=== PATIENT | male | born 1945 | race Caucasian/White ===

== ENCOUNTER 2020-05-06 18:22 | Emergency (ER) | payer MEDICARE, MEDICAID, SELFPAY ==
--- NOTE | ~2020-05-06 | XR_ITS ---
EXAMINATION: XR chest 2V DATE: 05/06/2020 20:06 INDICATION: Shortness of breath, known chest wall mass TECHNIQUE: PA and lateral views of the chest are obtained. COMPARISON: 05/17/2016 FINDINGS: A mild diffuse interstitial pattern is present. The heart size is normal. There are small p leural effusions. No pneumothorax is identified. Median sternotomy wires and mediastinal surgical cli ps are seen, likely from prior coronary artery bypass grafting. A dual-lead cardiac pacemaker of the right chest wall ends with leads in expected locations. There is moderate thoracic spondylosis with a chronic compression fracture of the lower thoracic spine. There is a calcified chest wall mass of th e anterior left mid thorax, reportedly chronic. IMPRESSION: 1. Mild pulmonary edema. 2. Small pleural effusions. Reviewed, dictated and finalized at location A.
[2020-05-06 18:33] VITALS: BP 189/88; PULSE 84; RESP 18; TEMP 36.7; O2SAT 91
--- NOTE | 2020-05-06 18:38 | ECG_ITS ---
Measurements Intervals [place] Rate: 78 P: 81 [place]: 174 QRS: -11 QRSD: 97 T: 44 QT: 337 QTc: 386 Interpretive Statements SINUS RHYTHM INCOMPLETE RIGHT BUNDLE BRANCH BLOCK LOW QRS VOLTAGE IN PRECORDIAL LEADS BORDERLINE ST-T WAVE ABNORMALITY- INF/LAT LEADS BASELINE ARTIFACT- I, II, III BORDERLINE ECG Electronically Signed On 05-07-2020 6:47:02 CDT by Justice Barragan D.O.
[2020-05-06 18:59] LABS: Basophils Absolute Auto 0.1 K/mm3 (0.0-0.1); Eosinophils Absolute Auto 0.7 K/mm3 (0-0.3); Eosinophils Percent Auto 11.1 % (0-4.4); Hematocrit 35.9 % (42.0-52.0); Hemoglobin 11.8 g/dL (14.0-18.0); Immature Granulocyte Absolute 0.05 K/mm3 (0.00-0.031); Immature Granulocyte Percent A 0.8 % (0-0.5); Lymphocytes Percent Auto 11.6 % (18.3-44.2); Mean Corpuscular HGB Conc 32.9 g/dl (32-36); Mean Corpuscular Hemoglobin 30.3 pg (26-34); Mean Corpuscular Volume 92.1 fl (80-100); Mean Platelet Volume 9.5 fl (7.4-10.4); Monocytes Absolute Auto 0.6 K/mm3 (0.1-0.6); Monocytes Percent Auto 9.5 % (2.6-8.5); Platelet Count Result 124 k/mm3 (150-375); Red Cell Distribution Width 15.6 % (11.5-14.5)
[2020-05-06 19:10] LABS: Blood Urea Nitrogen 24 mg/dL (9-20); Calcium 9.6 mg/dL (8.4-10.2); Carbon Dioxide 34 mmol/L (22-30); Chloride 99 mmol/L (98-107); Estimated CRCL calculation 70 ml/min; Estimated Glomerular Filt Rate > 60; Glucose 104 mg/dL (75-110); Potassium 3.6 mmol/L (3.4-5.0); Sodium 139 mmol/L (137-145)
[2020-05-06 20:07] VITALS: BP 202/92; PULSE 77; PULSE 79; RESP 16; O2SAT 100
[2020-05-06 21:13] LABS: NT Pro B Type Natriuretic Pept 1300 PG/ML (5-100)
[2020-05-06 21:35] VITALS: BP 175/80; PULSE 74; RESP 16; O2SAT 100
[2020-05-06] MEDS: FUROSEMIDE INJ 40 MG/4 ML VIAL IV PUSH (21:35)
[2020-05-06 22:20] VITALS: BP 179/87; PULSE 70; RESP 21; O2SAT 100
[2020-05-06 23:15] VITALS: BP 179/77; PULSE 70; RESP 22; O2SAT 99
--- NOTE | 2020-05-06 23:20 | ED.SOB ---
HPI - SOB/Dyspnea General Chief Complaint: Shortness of Breath/Dyspnea Stated Complaint: short of breath/ho recent pneumonia Time Seen by Provider: 05/06/20 19:55 History of Present Illness HPI Narrative: Patient is a 75-year-old male who presents the ER with shortness of breath. Patient has history of COPD. He was hospitalized 3 weeks ago at [facility] with pneumonia. Since then he has had some persistent shortness of breath. He spoke with his primary care doctor and he has been taking oral Levaquin for last week. He was originally on 500 mg daily and now he is on 750 mg daily. He has not been on any steroids for COPD because he is diabetic and makes his blood sugar go up. He reports he continues to have rattling in his chest. He wears 3 L of oxygen chronically at rest and 4 L at night when sleeping and 4 L with exertion. He has not had to increase his oxygen level. Related Data Home Medications Medication Instructions Recorded Confirmed Lacto no.[id number].bifid-B.animalis 1 cap PO DAILY 05/06/20 [Advanced Probiotic-10] Lacto.acidophilus-Bif.animalis 1 cap PO DAILY 05/06/20 [Daily Probiotic] alprazolam 0.25 mg PO TID 05/06/20 aspirin [Aspir-81] 81 mg PO DAILY 05/06/20 carvedilol 12.5 mg PO BID 05/06/20 clopidogrel 75 mg PO DAILY 05/06/20 cyclosporine [Restasis] 1 drp OPHTHALMIC (EYE) Q12H 05/06/20 enalapril maleate 20 mg PO HS 05/06/20 evolocumab [Repatha SureClick] 140 mg SUBCUT [id number] 05/06/20 finasteride 5 mg PO HS 05/06/20 fluticasone furoate-vilanterol 1 inh INHALATION DAILY 05/06/20 [Breo Ellipta] furosemide 40 mg PO DAILY 05/06/20 gabapentin 300 mg PO DIRECTED 05/06/20 glipizide 5 mg PO BID 05/06/20 hydrocodone-acetaminophen 1 tablet PO DIRECTED PRN 05/06/20 isosorbide mononitrate 120 mg PO DAILY 05/06/20 metformin 1,000 mg PO BID 05/06/20 pantoprazole [Protonix] 40 mg PO BID 05/06/20 tamsulosin 0.4 mg PO HS 05/06/20 umeclidinium [Incruse Ellipta] 1 inh INHALATION HS 05/06/20 vitamins A,C,U-hdjo-vjjjsp 1 tablet PO BID 05/06/20 [PreserVision AREDS] Allergies Allergy/AdvReac Type Severity Reaction Status Date / Time morphine Allergy Hypotension Verified 05/06/20 20:05 Review of Systems Review of Systems: All systems reviewed & are unremarkable except as noted in HPI and below Constitutional: Constitutional: Denies chills, Denies fever(s) and Denies weakness ENT: Denies nasal congestion and Denies sore throat Cardiovascular: Cardiovascular: Denies chest pain and Denies radiating jaw, neck or arm pain Respiratory: Respiratory: Reports cough, Reports dyspnea and Reports wheezing Gastrointestinal: Gastrointestinal: Denies abdominal pain, Denies nausea and Denies vomiting Neurologic: Denies focal weakness and Denies numbness PMFSH Past Medical History Medical History (Updated 05/06/20 @ 23:31 by Seb Kaur MD) Anxiety BPH (benign prostatic hyperplasia) COPD (chronic obstructive pulmonary disease) Diabetes type 2, controlled Hypertension Pneumonia Surgical History Surgical History (Updated 05/06/20 @ 23:29 by Seb Kaur MD) Surgical history unknown Exam Narrative: Exam Narrative: GENERAL: Well-appearing, well-nourished, and in no acute distress. HEAD: Normocephalic, atraumatic. ENT: Mucous membranes moist. CHEST: Coarse expiratory rales. No respiratory distress. HEART: Regular rate and rhythm. Normal peripheral pulses. ABDOMEN: Soft, nontender, nondistended. EXTREMITIES: Normal range of motion. No deformity. NEURO: Alert and oriented x3. PSYCH: Normal mood and affect. Course Course Emergency Course: No evidence of pneumonia. Slight volume overload. Given additional Lasix here. Needs follow-up with PCP. Vital Signs Vital signs: Vital Signs Temperature 98.1 F 05/06/20 18:33 Pulse Rate 84 05/06/20 18:33 Respiratory Rate 18 05/06/20 18:33 Blood Pressure 189/88 H 05/06/20 18:33 Pulse Oximetry 91 05/06/20 18:33
[2020-05-06 23:40] VITALS: BP 172/75; PULSE 68; RESP 20; O2SAT 99
== END 2020-05-06 23:40 | disposition home or self-care (01) ==
PROVIDERS: Emergency Medicine; Emergency Provider Emergency Medicine; PCP Internal Medicine
DX: I11.0 Hypertensive heart disease with heart failure (principal); I50.9 Heart failure, unspecified; J44.9 Chronic obstructive pulmonary disease, unspecified; N40.0 Benign prostatic hyperplasia without lower urinary tract symptoms; E11.9 Type 2 diabetes mellitus without complications; Z79.82 Long term (current) use of aspirin; F41.9 Anxiety disorder, unspecified; I45.10 Unspecified right bundle-branch block; R94.31 Abnormal electrocardiogram [ECG] [EKG]; Z79.84 Long term (current) use of oral hypoglycemic drugs
CPT/HCPCS: 36415; 71046; 80048; 83605; 83880; 85025; 93005; 96374; 99284; J1940

== ENCOUNTER 2021-01-20 23:14 | Inpatient (IN) | payer MEDICARE, MEDICAID, SELFPAY ==
--- NOTE | ~2021-01-20 | XR_ITS ---
EXAMINATION: XR chest 1V portable DATE: 01/22/2021 05:39 INDICATION: Pneumonia. TECHNIQUE: A single frontal view of the chest was obtained. COMPARISON: Chest single view 01/20/2021, chest CT 01/21/2021 FINDINGS: The patient is rotated to his left. There are small pleural effusions. There are airspace o pacities in all lung zones bilaterally with a basilar predominance. No pneumothorax. Cardiomegaly is noted. There is a right chest wall pacer with leads in the right atrium and right ventricle. Median s ternotomy wires and mediastinal surgical clips are seen, likely from prior coronary artery bypass gra fting. IMPRESSION: 1. Stable diffuse lung disease, consistent with pneumonia. 2. Small pleural effusions. 3. Cardiomegaly. Reviewed, dictated and finalized at location A. CLAIM CLERK
--- NOTE | ~2021-01-20 | CT_ITS ---
EXAMINATION: CTA chest PE protocol DATE: 01/21/2021 12:32 INDICATION: Acute on chronic respiratory failure, shortness of breath and chest pain TECHNIQUE: Computed tomography angiography (CTA) of the chest was performed with 100 mL Omnipaque-350 intravenous contrast timed to evaluate the pulmonary arteries. Coronal maximum intensity projection 3D-reconstructions were created by the technologist. The dose-length product (DLP) was 675.78 mGy-cm. Automated exposure control and iterative reconstruction technique were employed. COMPARISON: None. FINDINGS: The pulmonary arteries are well-opacified. No pulmonary embolism is identified. Cardiomegal y is noted. There are small pleural effusions. Patchy bilateral groundglass opacities are present. Mo re focal opacities are seen in the lower lobes. There is mild emphysema. Smooth interlobular septal t hickening is noted. There is calcified coronary artery atherosclerosis. There are changes of prior ca rdiac surgery. A dual-lead pacemaker of the right chest wall ends with its leads in the right atrium and right ventricle. There is a chronic rim calcified area in the left anterior chest wall. A small s liding hiatal hernia is present. There is mild wall thickening of the distal esophagus. There is mode rate thoracic spondylosis. There is a compression fracture of T12. There is a partially imaged 8.3 cm cyst of the right kidney. The gallbladder is surgically absent. There is a nonobstructing 5 mm stone in the upper pole of the left kidney. IMPRESSION: 1. No pulmonary embolism identified. 2. Diffuse groundglass opacities of the lungs, consistent with a linear edema and/or pneumonia. 3. Cardiomegaly. 4. Small pleural effusions. 5. Mild wall thickening of the distal esophagus which could reflect esophagitis. Reviewed, dictated and finalized at location A. ER HAND IMPRESSION: 1. No pulmonary embolism identified. 2. Diffuse groundglass opacities of the lungs, consistent with a linear edema a nd/or pneumonia. 3. Cardiomegaly. 4. Small pleural effusions. 5. Mild wall thickening of the distal esophagus which could reflect esophagitis .
--- NOTE | ~2021-01-20 | XR_ITS ---
EXAMINATION: XR chest 1V portable INDICATION: Shortness of breath TECHNIQUE: Portable AP chest at 0001 hours COMPARISON: 05/06/2020 FINDINGS: Cardiomegaly is noted. There is mild diffuse interstitial pattern. Small pleural effusions are present. Median sternotomy wires and mediastinal surgical clips are seen, likely from prior coron kahlil artery bypass grafting. A dual-lead cardiac pacemaker of the right chest wall ends with leads in expected locations. Again noted is a partially imaged chronic calcified mass of the left chest wall. IMPRESSION: 1. Cardiomegaly with mild pulmonary edema. 2. Small pleural effusions. Reviewed, dictated and finalized at location A. WORM GROWER
[2021-01-20 23:21] VITALS: BP 171/93; PULSE 88; RESP 22; TEMP 36.4; O2SAT 99
--- NOTE | 2021-01-20 23:36 | ECG_ITS ---
Measurements Intervals [place] Rate: 82 P: 213 [place]: 231 QRS: -18 QRSD: 105 T: -22 QT: 277 QTc: 323 Interpretive Statements ELECTRONIC ATRIAL PACEMAKER DELAYED PRECORDIAL R/S TRANSITION INFERIOR INFARCT, AGE INDETERMINATE NONSPECIFIC ST & T-WAVE ABNORMALITY- LATERAL LEADS BORDERLINE ECG Electronically Signed On 01-21-2021 7:09:18 [employer] SUPERVISOR by Justice Barragan D.O.
[2021-01-21] VITALS (25 sets, daily range): BP systolic 126–156; BP diastolic 54–87; PULSE 80–91; RESP 16–24; TEMP 36.1–36.8; O2SAT 94–100; BMI 29.0
[2021-01-21] MEDS: ALBUTEROL SULFATE (*SP) INHALER 2 PUFF INHALATION (00:09)
[2021-01-21] MEDS: methylPREDNISolone SOD SUCC 125 MG VIAL IV PUSH (00:19)
--- NOTE | 2021-01-21 00:37 | ED.GENADULT ---
HPI - General Adult General Chief complaint: Shortness of Breath/Dyspnea Stated complaint: LOW O2 SAT, CHEST BURNING Time Seen by Provider: 01/20/21 23:43 History of Present Illness HPI narrative: Patient 75-year-old gentleman who presents the emergency department with chief complaint of shortness of breath. Patient reports he has history of COPD and uses an oxygen concentrator. The patient states over the last several days to weeks he has been having increasing shortness of breath to the point that now whenever he gets up and walks around he has noticed that the knee is extremely winded. The patient has been checking his pulse ox at home with a finger tip monitor that has been reading 80s. Patient denies peripheral edema denies chest pain reports that he feels a short of breath. The patient states he was anoxic oxygen concentrator and reports that it has not been sufficient to relieve his symptoms at home. The patient denies fever denies productive cough. Related Data Home Medications Medication Instructions Recorded Confirmed Lacto no.41-B.bifid-B.animalis 1 cap PO DAILY 05/06/20 01/06/21 [Advanced Probiotic-10] Lacto.acidophilus-Bif.animalis 1 cap PO DAILY 05/06/20 01/06/21 [Daily Probiotic] alprazolam 0.25 mg PO TID 05/06/20 01/06/21 carvedilol 12.5 mg PO BID 05/06/20 01/06/21 clopidogrel 75 mg PO DAILY 05/06/20 01/06/21 cyclosporine [Restasis] 1 drp OPHTHALMIC (EYE) Q12H 05/06/20 01/06/21 enalapril maleate 20 mg PO HS 05/06/20 01/06/21 evolocumab [Repatha SureClick] 140 mg SUBCUT [id number] 05/06/20 01/06/21 finasteride 5 mg PO HS 05/06/20 01/06/21 fluticasone furoate-vilanterol 1 inh INHALATION DAILY 05/06/20 01/06/21 [Breo Ellipta] furosemide 40 mg PO DAILY 05/06/20 01/06/21 gabapentin 300 mg PO DIRECTED 05/06/20 01/06/21 glipizide 5 mg PO BID 05/06/20 01/06/21 hydrocodone-acetaminophen 1 tablet PO DIRECTED PRN 05/06/20 01/06/21 isosorbide mononitrate 120 mg PO DAILY 05/06/20 01/06/21 metformin 1,000 mg PO BID 05/06/20 01/06/21 pantoprazole [Protonix] 40 mg PO BID 05/06/20 01/06/21 tamsulosin 0.4 mg PO HS 05/06/20 01/06/21 umeclidinium [Incruse Ellipta] 1 inh INHALATION HS 05/06/20 01/06/21 vitamins A,C,R-gpmk-bdzdkf 1 tablet PO BID 05/06/20 01/06/21 [PreserVision AREDS] albuterol sulfate 0.63 mg/3 mL 0.63 mg INHALATION Q6H 01/06/21 01/06/21 solution for nebulization albuterol sulfate 90 mcg/actuation 1 inh INHALATION Q4H 01/06/21 01/06/21 aerosol inhaler apixaban 2.5 mg tablet 2.5 mg PO BID 01/06/21 01/06/21 empagliflozin 10 mg tablet 10 mg PO DAILY 01/06/21 01/06/21 nitroglycerin 0.4 mg sublingual 0.4 mg SUBLINGUAL Q5M PRN 01/06/21 01/06/21 tablet umeclidinium 62.5 mcg/actuation 1 inh INHALATION DAILY 01/06/21 01/06/21 blister powder for inhalation vitamins A,C,K-kttg-toyjlr 7,160 2 tablet PO BID 01/06/21 01/06/21 unit-113 mg-100 unit tablet Allergies Allergy/AdvReac Type Severity Reaction Status Date / Time morphine Allergy Hypotension Verified 01/06/21 13:09 Review of Systems Review of Systems: Narrative: A 10 system review of systems was completed on the patient and is negative except for what is stated in the HPI. Nursing and ancillary documentation was reviewed. [facility] Past Medical History Medical History Anxiety BPH (benign prostatic hyperplasia) COPD (chronic obstructive pulmonary disease) Diabetes type 2, controlled Hypertension Pneumonia Surgical History Surgical History Surgical history unknown Social History Social History Smoking status: Former smoker Exam Narrative: Exam Narrative: GENERAL: Well-appearing, well-nourished, and in no acute distress. HEAD: Normocephalic, atraumatic. EYES: PERRLA and EOMI. ENT: Nares clear, no rhinorrhea or epistaxis. Mucous membranes theodore
[2021-01-21 00:44] LABS: Basophils Percent Auto 0.8 % (0.2-1.2); Eosinophils Absolute Auto 0.3 K/mm3 (0-0.3); Eosinophils Percent Auto 5.6 % (0-4.4); Hematocrit 33.4 % (42.0-52.0); Hemoglobin 10.3 g/dL (14.0-18.0); Immature Granulocyte Absolute 0.05 K/mm3 (0.00-0.031); Lymphocytes Absolute Auto 0.69 K/mm3 (0.9-3.2); Lymphocytes Percent Auto 13.7 % (18.3-44.2); Mean Corpuscular HGB Conc 30.8 g/dl (32-36); Mean Corpuscular Hemoglobin 28.2 pg (26-34); Mean Corpuscular Volume 91.5 fl (80-100); Mean Platelet Volume 8.8 fl (7.4-10.4); Monocytes Absolute Auto 0.7 K/mm3 (0.1-0.6); Monocytes Percent Auto 13.7 % (2.6-8.5); Neutrophils Absolute Auto 3.3 K/mm3 (1.3-6.7); Neutrophils Percent Auto 65.2 % (45.5-73.1); Nucleated Red Blood Cells Perc 0.4 % (0.0-0.2); Platelet Count Result 141 k/mm3 (150-375); Red Blood Count 3.65 M/mm3 (4.6-6.20); Red Cell Distribution Width 17.2 % (11.5-14.5)
[2021-01-21 01:00] LABS: Alanine Aminotransferase 16 U/L (4-50); Albumin Level 3.5 g/dL (3.5-5.1); Alkaline Phosphatase 69 U/L (38-126); Aspartate Amino Transferase 24 U/L (17-59); Blood Urea Nitrogen 20 mg/dL (9-20); Calcium 8.9 mg/dL (8.4-10.2); Carbon Dioxide > 40 mmol/L (22-30); Chloride 94 mmol/L (98-107); Estimated CRCL calculation 57 ml/min; Estimated Glomerular Filt Rate > 60; Glucose 128 mg/dL (75-110); Sodium 143 mmol/L (137-145)
[2021-01-21 01:01] LABS: INR 1.3; Prothrombin Time 16.7 Seconds (11.1-14.7)
[2021-01-21 01:02] LABS: Partial Thromboplastin Time 32.7 SECONDS (22.3-36.8)
[2021-01-21 01:11] LABS: NT Pro B Type Natriuretic Pept 6120 PG/ML (5-100); Troponin I 0.044 ng/mL (0.000-0.034)
[2021-01-21 01:30] LABS: Alveolar/Arterial O2 Gradient 99.8 mmHg; Base Excess ABG 16.4 mEq/l (+/-2.0); Fractional Inspired Oxygen 32 %; HCO3 ABG 44.3 mEq/l (22.0-26.0); Oxyhemoglobin 72.5 % THb (90.0-100.0); PO2 FiO2 Ratio Arterial Blood 1.29 %; Total Hemoglobin 10.8 g/dL (12.0-18.0); pH ABG 7.393 (7.350-7.450)
[2021-01-21 01:33] LABS: PCO2 ABG 74.4 mmHg (35.0-45.0); PO2 ABG 41.3 mmHg (80.0-100.0)
[2021-01-21 01:34] LABS: Device NASAL CANNULA; Modified Allen's Test Pass; Oxygen Saturation ABG 73.7 % (95.0-100.0); Site Drawn RIGHT RADIAL
[2021-01-21] MEDS: FUROSEMIDE INJ 40 MG/4 ML VIAL IV PUSH ×3 (03:48→20:27)
[2021-01-21] MEDS: ASPIRIN 81 MG CHEWABLE TABLET 324 MG PO (03:48)
--- NOTE | 2021-01-21 04:31 | PM.IMHP ---
H&P: HPI History of Present Illness Date/Time: 01/21/21 04:31 Chief Complaint: Low oxygen sats at home. Narrative: This is a 75 year old male with known history of chronic respiratory failure on 3L of oxygen at home at all times and COPD who presented to the hospital with a complaint of low oxygen sats on his pulse oximetry and worsening shortness of breath with exertional activities over the past week. He admits that he has been told that he has chronic heart failure. He denies any significant swelling. On further questioning he also denies any fevers, chills, coughing, abdominal pain, dysuria, hematuria, diarrhea or rectal bleeding. The patient was just admitted last month at [facility] apparently for pneumonia. He denies having COVID-19 this past year and is known to have already gotten his first vaccine injection recently. Tonight his BMP was elevated at 6120 and his CXR demonstrated severe cardiomegaly with bilateral pulmonary edema. The patient was treated with IV lasix and we have been asked to admit him to the hospital for further care. Review of Systems Review of Systems: All systems reviewed & are unremarkable except as noted in HPI and below PMFSH Past Medical History Medical History (Updated 01/21/21 @ 04:58 by Filippo South MD) Anxiety Atrial fibrillation BPH (benign prostatic hyperplasia) COPD (chronic obstructive pulmonary disease) Diabetes type 2, controlled Hypertension Lipoma Pneumonia Surgical History Surgical History (Updated 01/21/21 @ 04:41 by Filippo South MD) Hx of CABG Surgical history unknown Family History Family History (Updated 01/21/21 @ 05:00 by Filippo South MD) Other Heart disease Social History Social History Smoking status: Former smoker Meds Home Medications and Allergies Home Medications Medication Instructions Recorded Confirmed Type Lacto no.41-B.bifid-B.animalis 1 cap PO DAILY 05/06/20 01/06/21 History [Advanced Probiotic-10] Lacto.acidophilus-Bif.animalis 1 cap PO DAILY 05/06/20 01/06/21 History [Daily Probiotic] alprazolam 0.25 mg PO TID 05/06/20 01/06/21 History carvedilol 12.5 mg PO BID 05/06/20 01/06/21 History clopidogrel 75 mg PO DAILY 05/06/20 01/06/21 History cyclosporine [Restasis] 1 drp OPHTHALMIC (EYE) Q12H 05/06/20 01/06/21 History enalapril maleate 20 mg PO HS 05/06/20 01/06/21 History evolocumab [Repatha SureClick] 140 mg SUBCUT [id number] 05/06/20 01/06/21 History finasteride 5 mg PO HS 05/06/20 01/06/21 History fluticasone furoate-vilanterol 1 inh INHALATION DAILY 05/06/20 01/06/21 History [Breo Ellipta] furosemide 40 mg PO DAILY 05/06/20 01/06/21 History gabapentin 300 mg PO DIRECTED 05/06/20 01/06/21 History glipizide 5 mg PO BID 05/06/20 01/06/21 History hydrocodone-acetaminophen 1 tablet PO DIRECTED PRN 05/06/20 01/06/21 History isosorbide mononitrate 120 mg PO DAILY 05/06/20 01/06/21 History metformin 1,000 mg PO BID 05/06/20 01/06/21 History pantoprazole [Protonix] 40 mg PO BID 05/06/20 01/06/21 History tamsulosin 0.4 mg PO HS 05/06/20 01/06/21 History umeclidinium [Incruse Ellipta] 1 inh INHALATION HS 05/06/20 01/06/21 History vitamins A,C,Y-lqxo-tqjkaz 1 tablet PO BID 05/06/20 01/06/21 History [PreserVision AREDS] albuterol sulfate 0.63 mg/3 mL 0.63 mg INHALATION Q6H 01/06/21 01/06/21 History solution for nebulization albuterol sulfate 90 mcg/actuation 1 inh INHALATION Q4H 01/06/21 01/06/21 History aerosol inhaler apixaban 2.5 mg tablet 2.5 mg PO BID 01/06/21 01/06/21 History empagliflozin 10 mg tablet 10 mg PO DAILY 01/06/21 01/06/21 History nitroglycerin 0.4 mg sublingual 0.4 mg SUBLINGUAL Q5M PRN 01/06/21 01/06/21 History tablet umeclidinium 62.5 mcg/actuation 1 inh INHALATION DAILY 01/06/21 01/06/21 History blister powder for inhalation vitamins A,C,K-owgg-mnnlwg 7,160 2 tablet PO BID 01/06/21 01/06/21 History unit-113 mg-100 u
--- NOTE | 2021-01-21 04:51 | ECHO_ITS ---
Patient Info Name: Reji Baker Age: 75 years : 1945 Gender: Male Ht: 73 in Wt: 220 lbs BSA: 2.29 m2 HR: 116 bpm BP: 156 / 87 mmHg Technical Quality: Good Exam Date: 01/21/2021 2:00 PM Exam Location: [facility] Patient Status: Outpatient Admit Date: 01/21/2021 Staff Ordering Physician: Filippo South MD Supervisor Corduroy Cutting: Brian Steward RDCS, RT Attending Provider: Asa Whiting PA-C Referring Physician: Akosua PERAZA; Exam Type: CA echo doppler color flow Study Info Indications I50.9 - Heart failure, unspecified Complete two-dimensional, color flow and Doppler transthoracic echocardiogram is performed. Summary 1. Complete two-dimensional, color flow and Doppler transthoracic echocardiogram is performed. 2. Left ventricular chamber dimension is moderately enlarged. 3. Inferior wall/posterior wall is hypokinetic. 4. Left ventricular systolic function is moderately reduced, estimated at 35-40%. 5. There is mildly increased left ventricular wall thickness. 6. The left ventricular diastolic function is grade I diastolic dysfunction. 7. Linear artifact in right ventricle suggestive of catheter(s), pacemaker lead(s), or ICD lead(s). 8. Left atrial chamber dimension is mildly enlarged. 9. Linear artifact in the right atrium suggestive of catheter(s), pacemaker lead(s), or ICD lead(s). 10. There is mild aortic valve sclerosis. 11. There is trace aortic valve regurgitation. 12. The mitral valve has mildly calcified annulus. 13. There is mild to moderate mitral valve regurgitation. 14. There is mild tricuspid valve regurgitation. 15. Severe pulmonary hypertension, estimated pulmonary arterial systolic pressure is 63 mmHg. 16. Dilated inferior vena cava with <50% collapse upon inspiration consistent with significantly elevated right atrial pressure, 15 mmHg. Left Ventricle Inferior wall/posterior wall is hypokinetic. Tissue doppler is not performed. Left ventricular chamber dimension is moderately enlarged. Left ventricular systolic function is moderately reduced, estimated at 35-40%. There is mildly increased left ventricular wall thickness. The left ventricular diastolic function is grade I diastolic dysfunction. Right Ventricle Right ventricular systolic function is normal based on normal TAPSE 1.8 cm. Linear artifact in right ventricle suggestive of catheter(s), pacemaker lead(s), or ICD lead(s). Right ventricular chamber dimension is not well visualized. Left Atria Left atrial chamber dimension is mildly enlarged. Right Atria Linear artifact in the right atrium suggestive of catheter(s), pacemaker lead(s), or ICD lead(s). Right atrial chamber dimension is not well visualized. Aortic Valve The aortic valve is trileaflet. There is mild aortic valve sclerosis. There is no aortic valve stenosis. There is trace aortic valve regurgitation. Pulmonic Valve There is no pulmonic regurgitation. Mitral Valve The mitral valve has mildly calcified annulus. There is no mitral valve stenosis. There is mild to moderate mitral valve regurgitation. Tricuspid Valve There is mild tricuspid valve regurgitation. Severe pulmonary hypertension, estimated pulmonary arterial systolic pressure is 63 mmHg. Pericardium/Pleural There is no pericardial effusion. Inferior Vena Cava Dilated inferior vena cava with <50% collapse upon inspiration consistent with significantly elevated right atrial pressure, 15 mmHg. Aorta The aortic root size at the s
[2021-01-21] MEDS: POTASSIUM CHLORIDE 20 MEQ TABLET 40 MEQ PO (04:56)
[2021-01-21] MEDS: HYDROcodone/acetaminophen (*CRX) 5-325 MG TABLET 1 TAB PO (04:57)
--- NOTE | 2021-01-21 05:12 | PC.NURSE ---
This patient, Reji Baker, was admitted to IMU Room 213-01. Patient/family oriented to hospital policies and general routines including ID bracelet, bed and alarms, visiting hours, pain management, procedures, bathroom and other care routines, personal items, smoking policy, room service/diet, and visiting hours. Information on how to activate the Rapid Response Team has been discussed. Patient/Family are encouraged to report perceived risks to care and to ask questions if they do not understand what they are told or what they should do.
[2021-01-21 06:21] LABS: Basophils Percent Auto 0.6 % (0.2-1.2); Eosinophils Absolute Auto 0.1 K/mm3 (0-0.3); Eosinophils Percent Auto 1.4 % (0-4.4); Hematocrit 35.1 % (42.0-52.0); Hemoglobin 10.7 g/dL (14.0-18.0); Immature Granulocyte Absolute 0.08 K/mm3 (0.00-0.031); Immature Granulocyte Percent A 1.6 % (0-0.5); Lymphocytes Absolute Auto 0.35 K/mm3 (0.9-3.2); Lymphocytes Percent Auto 7.1 % (18.3-44.2); Mean Corpuscular HGB Conc 30.5 g/dl (32-36); Mean Corpuscular Hemoglobin 27.7 pg (26-34); Mean Corpuscular Volume 90.9 fl (80-100); Monocytes Absolute Auto 0.1 K/mm3 (0.1-0.6); Monocytes Percent Auto 1.6 % (2.6-8.5); Neutrophils Absolute Auto 4.3 K/mm3 (1.3-6.7); Neutrophils Percent Auto 87.7 % (45.5-73.1); Nucleated Red Blood Cells Perc 0.4 % (0.0-0.2); Platelet Count Result 152 k/mm3 (150-375); Red Blood Count 3.86 M/mm3 (4.6-6.20); Red Cell Distribution Width 17.2 % (11.5-14.5); White Blood Count 4.9 K/mm3 (4.5-10.0)
[2021-01-21 06:46] LABS: Potassium 3.6 mmol/L (3.4-5.0); Troponin I 0.034 ng/mL (0.000-0.034)
[2021-01-21 06:47] LABS: Blood Urea Nitrogen 22 mg/dL (9-20); Carbon Dioxide > 40 mmol/L (22-30); Chloride 91 mmol/L (98-107); Estimated CRCL calculation 63 ml/min; Estimated Glomerular Filt Rate > 60; Glucose 234 mg/dL (75-110); Magnesium 2.1 mg/dL (1.6-2.3); Sodium 142 mmol/L (137-145)
[2021-01-21 07:47] LABS: Glucose Point of Care 214 (65-105)
[2021-01-21] MEDS: ALBUTEROL SULFATE NEB 2.5 MG/0.5 ML INH 5 MG INHALATION (07:54)
[2021-01-21] MEDS: IPRATROPIUM BR 0.02% INH SOLN 0.5 MG/2.5 ML VIAL INHALATION ×3 (07:54→21:16)
[2021-01-21 08:28] LABS: Thyroid Stimulating Hormone Reflex 0.317 uIU/mL (0.465-4.68)
[2021-01-21] MEDS: carvediloL 25 MG TABLET PO ×2 (09:17→17:25)
[2021-01-21] MEDS: APIXABAN 2.5 MG TABLET PO (09:17)
[2021-01-21] MEDS: OPTI-GEN TAB 1 TABLET PO ×2 (09:17→17:25)
[2021-01-21] MEDS: glipiZIDE 5 MG TABLET PO ×2 (09:17→17:25)
[2021-01-21] MEDS: ACIDOPHILUS/BULGARICUS CHEWABLE TABLET 1 TABLET PO (09:17)
[2021-01-21] MEDS: CLOPIDOGREL BISULFATE 75 MG TABLET PO (09:17)
[2021-01-21] MEDS: GABAPENTIN 300 MG CAPSULE PO ×3 (09:18→17:25)
[2021-01-21] MEDS: DIGOXIN TAB 125 MCG TABLET PO (09:18)
[2021-01-21] MEDS: FINASTERIDE 5 MG TABLET PO (09:18)
[2021-01-21] MEDS: PANTOPRAZOLE 40 MG TABLET PO (09:18)
[2021-01-21] MEDS: cycloSPORINE 0.4 ML OPHTH SOLUTION 1 DROP EACH EYE ×2 (09:18→20:28)
[2021-01-21] MEDS: ENALAPRIL MALEATE 10 MG TABLET PO (09:18)
[2021-01-21] MEDS: INSULIN ASPART (*BKC) 100 UNITS/ML SUB-Q ×4 (09:20→21:17)
[2021-01-21 09:37] LABS: Free T4 Free Thyroxine Reflex 1.63 ng/dL (0.78-2.19)
[2021-01-21] MEDS: POTASSIUM CHLORIDE 20 MEQ TABLET PO (09:38)
--- NOTE | 2021-01-21 10:18 | P.PNIM_ITS ---
Progress Note: A&P Assessment and Plan (1) Acute respiratory failure with hypoxemia: Code(s): J96.01 - Acute respiratory failure with hypoxia Status: Acute Assessment and Plan: Appears to be secondary to acute CHF exacerbation vs COPD exacerbation based on exam and labs/diagnostics. CXR and elevated BNP suggestive of CHF; exam mores suggestive of possible COPD exacerbation. Discussed case with Dr. Kearney ([facility]) who has seen patient for a pulmonary nodule as an outpatient; he agrees to see patient as a consult; appreciate recommendations. Patient recently admitted to [facility] and believes hes been treated with aggressive vanc for pneumonia; patient also mentions he has had positive sputum cultures for pseudomonas. After discussing with Dr. Kearney, he rec IV vanc, levaquin, and zosyn for COPD and possible pneumonia given his history. Also rec d-dimer and subsequent CTA chest if positive (CTA chest ordered) to rule out PE, although patient is on Eliquis for CVA ppx making this less likely. He also rec covid and flu swabs although patient has had 1/2 doses for his COVID vaccine and multi ple negative swabs in the past making this less likely as well. Overall, patient clinically improving, although now developed a more productive cough with parker colored sputum. O2 has been weaned to 4L O2 which he normally wears 3L at home. * Continue supplemental oxygen and wean as tolerated. * Continue Pulmonology rec with IV zosyn, vanc, and levaquin and deescalate during hospital course pending improvement * Sputum culture to be collected * Blood cultures to be drawn prior to antibiotics * COVID and Flu swabs to be collected * CTA chest ordered * Continue treatment for CHF exacerbation and COPD exacerbation; see below * RT assess and treat. * Continuous pulse oximetry. * Monitor closely (2) Acute exacerbation of CHF (congestive heart failure): Qualifiers: Heart failure type: unspecified Qualified Code(s): I50.9 - Heart failure, unspecified Code(s): I50.9 - Heart failure, unspecified Status: Acute Assessment and Plan: CXR and BNP suggestive of acute exacerbation of CHF * Obtain records from [facility] * Echo ordered * Continue IV lasix 40 mg Q12 for now; taper pending clinical improvement * Montor Is and Os, Daily weights. * Fluid restricted, sodium prudent diet. * CHF education. * Monitor (3) COPD (chronic obstructive pulmonary disease): Qualifiers: COPD type: unspecified COPD Qualified Code(s): J44.9 - Chronic obstructive pulmonary disease, unspecified Code(s): J44.9 - Chronic obstructive pulmonary disease, unspecified Status: Chronic Assessment and Plan: Possible COPD exacerbation. Significant amount of hospitalizations for previous pneumonias as noted above. * Continue oxygen supplementation and bronchodilators. * Added Budesonide nebs per Pulm rec * Start IV vanc, zosyn, and levaquin as noted above; will need to monitor QTc given digoxin * Start IV solumedrol 40 mg Q6h per pulm rec; taper pending clinical improvements * Sputum culture * Monitor closely (4) Chronic anemia: Code(s): D64.9 - Anemia, unspecified Status: Chronic Assessment and Plan: Likely anemia of chronic disease. No signs of acute blood loss. H&H stable * Monitor H/H, transfuse prn. (5) Thrombocytopenia: Code(s): D69.6 - Thrombocytopenia, unspecified Status: Acute Assessment and Plan: Acute
--- NOTE | 2021-01-21 10:18 | PM.IMPN ---
Progress Note: A&P Assessment and Plan (1) Acute respiratory failure with hypoxemia: Code(s): J96.01 - Acute respiratory failure with hypoxia Status: Acute Assessment and Plan: Appears to be secondary to acute CHF exacerbation vs COPD exacerbation based on exam and labs/diagnostics. CXR and elevated BNP suggestive of CHF; exam mores suggestive of possible COPD exacerbation. Discussed case with Dr. Kearney (Pulmonology) who has seen patient for a pulmonary nodule as an outpatient; he agrees to see patient as a consult; appreciate recommendations. Patient recently admitted to [facility] and believes hes been treated with aggressive vanc for pneumonia; patient also mentions he has had positive sputum cultures for pseudomonas. After discussing with Dr. Kearney, he rec IV vanc, levaquin, and zosyn for COPD and possible pneumonia given his history. Also rec d-dimer and subsequent CTA chest if positive (CTA chest ordered) to rule out PE, although patient is on Eliquis for CVA ppx making this less likely. He also rec covid and flu swabs although patient has had 1/2 doses for his COVID vaccine and multiple negative swabs in the past making this less likely as well. Overall, patient clinically improving, although now developed a more productive cough with parker colored sputum. O2 has been weaned to 4L O2 which he normally wears 3L at home. Continue supplemental oxygen and wean as tolerated. Continue Pulmonology rec with IV zosyn, vanc, and levaquin and deescalate during hospital course pending improvement Sputum culture to be collected Blood cultures to be drawn prior to antibiotics COVID and Flu swabs to be collected CTA chest ordered Continue treatment for CHF exacerbation and COPD exacerbation; see below RT assess and treat. Continuous pulse oximetry. Monitor closely (2) Acute exacerbation of CHF (congestive heart failure): Qualifiers: Heart failure type: unspecified Qualified Code(s): I50.9 - Heart failure, unspecified Code(s): I50.9 - Heart failure, unspecified Status: Acute Assessment and Plan: CXR and BNP suggestive of acute exacerbation of CHF Obtain records from [facility] Echo ordered Continue IV lasix 40 mg Q12 for now; taper pending clinical improvement Montor Is and Os, Daily weights. Fluid restricted, sodium prudent diet. CHF education. Monitor (3) COPD (chronic obstructive pulmonary disease): Qualifiers: COPD type: unspecified COPD Qualified Code(s): J44.9 - Chronic obstructive pulmonary disease, unspecified Code(s): J44.9 - Chronic obstructive pulmonary disease, unspecified Status: Chronic Assessment and Plan: Possible COPD exacerbation. Significant amount of hospitalizations for previous pneumonias as noted above. Continue oxygen supplementation and bronchodilators. Added Budesonide nebs per Pulm rec Start IV vanc, zosyn, and levaquin as noted above; will need to monitor QTc given digoxin Start IV solumedrol 40 mg Q6h per pulm rec; taper pending clinical improvements Sputum culture Monitor closely (4) Chronic anemia: Code(s): D64.9 - Anemia, unspecified Status: Chronic Assessment and Plan: Likely anemia of chronic disease. No signs of acute blood loss. H&H stable Monitor H/H, transfuse prn. (5) Thrombocytopenia: Code(s): D69.6 - Thrombocytopenia, unspecified Status: Acute Assessment and Plan: Acute vs. Chronic. Normalized today Monitor platelets. (6) Hypokalemia: Code(s): E87.6 - Hypokalemia Status: Acute Assessment and Plan: K 3.6 this morning on repeat Monitor serum potassium. replace as needed (7) Elevated troponin: Code(s): R77
[2021-01-21 10:22] LABS: Total Triiodothyronine (T3) 1.76 NG/ML (0.97-1.69)
[2021-01-21 10:26] LABS: D Dimer 0.61 ug/mL (<0.48)
[2021-01-21 11:01] LABS: Digoxin 1.2 ng/mL (0.8-2.0)
[2021-01-21 11:26] LABS: Influenza Control Positive
[2021-01-21 12:19] LABS: Glucose Point of Care 320 (65-105)
[2021-01-21] MEDS: ALBUTEROL SULFATE NEB 2.5 MG/0.5 ML INH INHALATION ×2 (13:24→21:16)
[2021-01-21] MEDS: methylPREDNISolone SOD SUCC 40 MG VIAL IV PUSH ×3 (13:35→23:48)
[2021-01-21] MEDS: HYDROcodone/acetaminophen (*CRX) 7.5-325 MG TABLET 1 TAB PO (13:38)
--- NOTE | 2021-01-21 14:48 | PM.CNPUL ---
Assessment and Plan Assessment and plan (1) COPD (chronic obstructive pulmonary disease): Qualifiers: COPD type: unspecified COPD Qualified Code(s): J44.9 - Chronic obstructive pulmonary disease, unspecified Code(s): J44.9 - Chronic obstructive pulmonary disease, unspecified Status: Chronic Assessment and Plan: Patient With COPD and a reported FEV1 of 49% predicte, The total lung capacity was 126% predicted, The DLCO corrected was 80% on 3 L oxygen at rest and 4 with ambulation and 4 L at night. Patient now with worsening oxygenation, minimal shortness of breath and minimal change in his phlegm production. I will need she ate treatment for a COPD exacerbation including Solu-Medrol 40 mg IV q.6 hours, albuterol 2.5 mg nebs q.6, ipratropium 0.5 mg neb Q 6, budesonide 0.5 mg neb Q 12 hours. Patient also with patchy bilateral ground-glass opacities in both lungs which are more consolidated in the lower lobes. I will treat the patient for a hospital-acquired pneumonia with vancomycin, Zosyn and Levaquin. 01/21 Currently improved with treatment overnight anbd no wheezes. Sats 95% on 4L NC (2) Interstitial lung disease: Code(s): J84.9 - Interstitial pulmonary disease, unspecified Status: Acute Assessment and Plan: Patient has had multiple CT scans at [facility] and I need these images to compare to our current CT scan of the chest to determine if he has persistent infiltrates and or nodules. Patient has no history of hemoptysis and his oxygen requirements are minimally changed. I will repeat serologies for rheumatoid factor, and send an YAQUELIN screen with 11 auto antibodies, and ANCA screen and hypersensitivity pneumonitis panel. Agree with aggressive diuresis as toelrated by cardiac and renal systems. If patient has persistent infiltrates he may require a bronchoscopy. At this point I will place him on Lovenox 1 milligram/kilos BID and discontinue his Eliquis In case it is felt that a bronchoscopy is warranted after reviewing CT scans and that the patient will stay in the hospital to have this procedure. (3) ROHITH (obstructive sleep apnea): Code(s): G47.33 - Obstructive sleep apnea (adult) (pediatric) Status: Acute Assessment and Plan: Patient clinic note states that he has obstructive sleep apnea but that he has refused CPAP treatment in the past. Will continue 4 L nasal cannula oxygen at night. I spoke with patient and he does not want to attempt CPA/BIPAP mask as he has clostrophobia. (4) Acute respiratory failure with hypoxia and hypercarbia: Code(s): J96.01 - Acute respiratory failure with hypoxia; J96.02 - Acute respiratory failure with hypercapnia Status: Acute Assessment and Plan: Patient with a blood gas of pH 7.39/74/41 on 3 L nasal cannula. Patient has hypercarbic and hypoxemic respiratory failure. Patient has declined CPAP mask in the past and at this point will treat his hypoxemia with nasal cannula oxygen. If patient is in agreement to wear a noninvasive ventilator at night this may help his overall debility. (5) Macular degeneration: Code(s): H35.30 - Unspecified macular degeneration Status: Acute Assessment and Plan: Patient has macular degeneration with poor eyesight in his right eye. Patient is scheduled to get an injection in the left eye which has been canceled once because of a prior hospitalization and the patient states that he absolutely requires this injection in his left eye on Wednesday 01/24. Patient is requesting that he be discharged from this hospital on 01/23 so that he can make that appointment in the morning of 01/24. History of Present Illness History of Present Illness Consult date: 01/21/21 Requesting physician: Asa Whiting PA-C Reason for consult: COPD and hypoxemia Chief complaint: acute CHF exacerbation, copd exacerbation Narrative: This is a new pulmonary consult for COPD with hypoxemia.
[2021-01-21 17:19] LABS: Rheumatoid Factor 22.7 IU/ML (<12)
[2021-01-21] MEDS: INSULIN GLARGINE (*BKC) 100 UNITS/ML 10 UNITS SUB-Q (17:26)
[2021-01-21 18:12] LABS: Glucose Point of Care 373 (65-105)
[2021-01-21 18:59] LABS: SARS-CoV-2 RNA PCR Negative
[2021-01-21] MEDS: TAMSULOSIN HCL 0.4 MG CAPSULE PO (20:27)
[2021-01-21] MEDS: ENOXAPARIN 100 MG/ML SYRINGE SUB-Q (20:27)
[2021-01-21 20:44] LABS: Glucose Point of Care 352 (65-105)
[2021-01-21] MEDS: BUDESONIDE RESPULE NEB 0.5 MG/2 ML AMP INHALATION (21:16)
[2021-01-22] VITALS (25 sets, daily range): BP systolic 132–154; BP diastolic 53–73; PULSE 80–115; RESP 16–22; TEMP 36.1–37.2; O2SAT 93–100
[2021-01-22 00:16] LABS: Glucose Point of Care 242 (65-105)
[2021-01-22] MEDS: ALBUTEROL SULFATE NEB 2.5 MG/0.5 ML INH INHALATION ×4 (02:25→20:14)
[2021-01-22] MEDS: IPRATROPIUM BR 0.02% INH SOLN 0.5 MG/2.5 ML VIAL INHALATION ×4 (02:26→20:13)
[2021-01-22 06:52] LABS: Basophils Percent Auto 0.1 % (0.2-1.2); Hematocrit 31.7 % (42.0-52.0); Hemoglobin 9.6 g/dL (14.0-18.0); Immature Granulocyte Absolute 0.08 K/mm3 (0.00-0.031); Immature Granulocyte Percent A 0.8 % (0-0.5); Lymphocytes Absolute Auto 0.33 K/mm3 (0.9-3.2); Lymphocytes Percent Auto 3.4 % (18.3-44.2); Mean Corpuscular HGB Conc 30.3 g/dl (32-36); Mean Corpuscular Hemoglobin 27.2 pg (26-34); Mean Corpuscular Volume 89.8 fl (80-100); Mean Platelet Volume 9.5 fl (7.4-10.4); Monocytes Absolute Auto 0.3 K/mm3 (0.1-0.6); Monocytes Percent Auto 3.4 % (2.6-8.5); Neutrophils Percent Auto 92.3 % (45.5-73.1); Platelet Count Result 170 k/mm3 (150-375); Red Blood Count 3.53 M/mm3 (4.6-6.20); Red Cell Distribution Width 16.8 % (11.5-14.5); White Blood Count 9.8 K/mm3 (4.5-10.0)
[2021-01-22] MEDS: glipiZIDE 5 MG TABLET PO ×2 (06:59→16:58)
[2021-01-22] MEDS: methylPREDNISolone SOD SUCC 40 MG VIAL IV PUSH ×3 (06:59→20:51)
[2021-01-22 07:09] LABS: Blood Urea Nitrogen 32 mg/dL (9-20); Calcium 9.2 mg/dL (8.4-10.2); Carbon Dioxide > 40 mmol/L (22-30); Chloride 95 mmol/L (98-107); Estimated CRCL calculation 49 ml/min; Estimated Glomerular Filt Rate 54; Glucose 266 mg/dL (75-110); Magnesium 2.2 mg/dL (1.6-2.3); Potassium 3.4 mmol/L (3.4-5.0); Sodium 140 mmol/L (137-145)
[2021-01-22 07:50] LABS: Glucose Point of Care 303 (65-105)
[2021-01-22] MEDS: PANTOPRAZOLE 40 MG TABLET PO (08:46)
[2021-01-22] MEDS: ASPIRIN 81 MG CHEWABLE TABLET PO (08:46)
[2021-01-22] MEDS: FINASTERIDE 5 MG TABLET PO (08:46)
[2021-01-22] MEDS: ENOXAPARIN 100 MG/ML SYRINGE SUB-Q (08:47)
[2021-01-22] MEDS: ACIDOPHILUS/BULGARICUS CHEWABLE TABLET 1 TABLET PO (08:47)
[2021-01-22] MEDS: OPTI-GEN TAB 1 TABLET PO ×2 (08:47→17:00)
[2021-01-22] MEDS: carvediloL 25 MG TABLET PO ×2 (08:47→16:59)
[2021-01-22] MEDS: cycloSPORINE 0.4 ML OPHTH SOLUTION 1 DROP EACH EYE ×2 (08:48→20:52)
[2021-01-22] MEDS: CLOPIDOGREL BISULFATE 75 MG TABLET PO (08:48)
[2021-01-22] MEDS: ENALAPRIL MALEATE 10 MG TABLET PO (08:49)
[2021-01-22] MEDS: DIGOXIN TAB 125 MCG TABLET PO (08:49)
[2021-01-22] MEDS: GABAPENTIN 300 MG CAPSULE PO ×3 (08:49→16:59)
[2021-01-22] MEDS: FUROSEMIDE INJ 40 MG/4 ML VIAL IV PUSH (08:50)
[2021-01-22] MEDS: POTASSIUM CHLORIDE 20 MEQ PACKET (FOR LIQUID) 40 MEQ PO (09:09)
[2021-01-22] MEDS: INSULIN ASPART (*BKC) 100 UNITS/ML SUB-Q ×3 (09:11→17:02)
--- NOTE | 2021-01-22 10:06 | P.PNIM_ITS ---
Progress Note: A&P Assessment and Plan (1) Acute respiratory failure with hypoxemia: Code(s): J96.01 - Acute respiratory failure with hypoxia Status: Acute Assessment and Plan: Appears to be secondary to acute CHF (systolic with EF 35-40% and diastolic) exacerbation vs COPD exacerbation based on exam and labs/diagnostics. CXR and elevated BNP suggestive of CHF; exam mores suggestive of possible COPD exacer bation and/or pneumonia. Discussed case with Dr. Kearney (Pulmonology); appreciate recommendations. Overall, patient clinically improving, although still having HICKEY with chest achiness when walking to the bathroom. O2 has been weaned to 4L O2 which he normally wears 3L at rest and 4L with activity. * Continue supplemental oxygen and wean as tolerated. * Continue Pulmonology rec with IV zosyn, vanc, and levaquin and deescalate during hospital course pending improvement * Sputum culture pending * Blood cultures pending * COVID and Flu swabs to be collected * Continue treatment for CHF exacerbation and COPD exacerbation; see below * RT assess and treat. * Continuous pulse oximetry. * Monitor closely (2) Acute exacerbation of CHF (congestive heart failure): Qualifiers: Heart failure type: unspecified Qualified Code(s): I50.9 - Heart f ailure, unspecified Code(s): I50.9 - Heart failure, unspecified Status: Acute Assessment and Plan: CXR and BNP suggestive of acute exacerbation of CHF. Echo shows EF 35-40% with diastolic dysfunction as well; severe pulmonary hypertension noted. 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 As far as the patient is aware, he thinks his EF was abnormal at around 35% but improved to a normal value with Coreg. He is followed by Dr. Phillip * Obtain records from [facility], Dr. Cevallos, or [facility] heart and vascular for most recent Echo or cardiac cath * Will consult Cardiology given the apparent decrease in EF; appreciate recommendations * Will decrease IV lasix 40 mg to daily * Montor Is and Os, Daily weights. * Fluid restricted, sodium prudent diet. * CHF education. * Monitor (3) COPD (chronic obstructive pulmonary disease): Qualifiers: COPD type: unspecified COPD Qualified Code(s): J44.9 - Chronic obstructive pulmonary disease, unspecified Code(s): J44.9 - Chronic obstructive pulmonary disease, unspecified Status: Chronic Assessment and Plan: Possible COPD exacerbation. Significant amount of hospitalizations for previous pneumonias as noted above. * Continue oxygen supplementation and bronchodilators. * Continue Budesonide nebs per Pulm rec * Continue IV vanc, zosyn, and levaquin as noted above; will need to monitor QTc given digoxin - EKG tomorrow morning * Continue IV solumedrol 40 mg Q6h per pulm rec; taper pending clinical improvements * Sputum culture pending * Monitor closely (4) Chronic anemia: Code(s): D64.9 - Anemia, unspecified Status: Chronic Assessment and Plan: Likely anemia of chronic disease. No signs of acute blood loss. H&H stable * Monitor H/H, transfuse prn. (5) Thrombocytopenia: Code(s): D69.6 - Thrombocytopenia, unspecified Status: Acute Assessment and Plan: Acute vs. Chronic. WNL * Monitor platelets. (6) Hypokalemia: Code(
--- NOTE | 2021-01-22 10:06 | PM.IMPN ---
Progress Note: A&P Assessment and Plan (1) Acute respiratory failure with hypoxemia: Code(s): J96.01 - Acute respiratory failure with hypoxia Status: Acute Assessment and Plan: Appears to be secondary to acute CHF (systolic with EF 35-40% and diastolic) exacerbation vs COPD exacerbation based on exam and labs/diagnostics. CXR and elevated BNP suggestive of CHF; exam mores suggestive of possible COPD exacerbation and/or pneumonia. Discussed case with Dr. Kearney (Pulmonology); appreciate recommendations. Overall, patient clinically improving, although still having HICKEY with chest achiness when walking to the bathroom. O2 has been weaned to 4L O2 which he normally wears 3L at rest and 4L with activity. Continue supplemental oxygen and wean as tolerated. Continue Pulmonology rec with IV zosyn, vanc, and levaquin and deescalate during hospital course pending improvement Sputum culture pending Blood cultures pending COVID and Flu swabs to be collected Continue treatment for CHF exacerbation and COPD exacerbation; see below RT assess and treat. Continuous pulse oximetry. Monitor closely (2) Acute exacerbation of CHF (congestive heart failure): Qualifiers: Heart failure type: unspecified Qualified Code(s): I50.9 - Heart failure, unspecified Code(s): I50.9 - Heart failure, unspecified Status: Acute Assessment and Plan: CXR and BNP suggestive of acute exacerbation of CHF. Echo shows EF 35-40% with diastolic dysfunction as well; severe pulmonary hypertension noted. 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 As far as the patient is aware, he thinks his EF was abnormal at around 35% but improved to a normal value with Coreg. He is followed by Dr. Phillip Obtain records from [facility], Dr. Cevallos, or [facility] heart and vascular for most recent Echo or cardiac cath Will consult Cardiology given the apparent decrease in EF; appreciate recommendations Will decrease IV lasix 40 mg to daily Montor Is and Os, Daily weights. Fluid restricted, sodium prudent diet. CHF education. Monitor (3) COPD (chronic obstructive pulmonary disease): Qualifiers: COPD type: unspecified COPD Qualified Code(s): J44.9 - Chronic obstructive pulmonary disease, unspecified Code(s): J44.9 - Chronic obstructive pulmonary disease, unspecified Status: Chronic Assessment and Plan: Possible COPD exacerbation. Significant amount of hospitalizations for previous pneumonias as noted above. Continue oxygen supplementation and bronchodilators. Continue Budesonide nebs per Pulm rec Continue IV vanc, zosyn, and levaquin as noted above; will need to monitor QTc given digoxin - EKG tomorrow morning Continue IV solumedrol 40 mg Q6h per pulm rec; taper pending clinical improvements Sputum culture pending Monitor closely (4) Chronic anemia: Code(s): D64.9 - Anemia, unspecified Status: Chronic Assessment and Plan: Likely anemia of chronic disease. No signs of acute blood loss. H&H stable Monitor H/H, transfuse prn. (5) Thrombocytopenia: Code(s): D69.6 - Thrombocytopenia, unspecified Status: Acute Assessment and Plan: Acute vs. Chronic. WNL Monitor platelets. (6) Hypokalemia: Code(s): E87.6 - Hypokalemia Status: Acute Assessment and Plan: K 3.4 this morning; replaced Monitor serum potassium. Will do daily KCl 40 mg replace as needed (7) Elevated troponin: Code(s): R77.8 - Other specified abnormalities of plasma proteins Status: Acute Assessment and Plan: Lik
[2021-01-22 11:44] LABS: Glucose Point of Care 300 (65-105)
--- NOTE | 2021-01-22 16:28 | PM.PNPUL ---
Progress Note: A&P Assessment and Plan (1) COPD (chronic obstructive pulmonary disease): Qualifiers: COPD type: unspecified COPD Qualified Code(s): J44.9 - Chronic obstructive pulmonary disease, unspecified Code(s): J44.9 - Chronic obstructive pulmonary disease, unspecified Status: Chronic Assessment and Plan: Patient with COPD and a reported FEV1 of 49% predicted, the total lung capacity was 126% predicted, The DLCO corrected was 80% on 3 L oxygen at rest and 4 with ambulation and 4 L at night. Patient now with worsening oxygenation, minimal shortness of breath and minimal change in his phlegm production. I will initiate treatment for a COPD exacerbation including Solu-Medrol 40 mg IV q.6 hours, albuterol 2.5 mg nebs q.6, ipratropium 0.5 mg neb Q 6, budesonide 0.5 mg neb Q 12 hours. Patient also with patchy bilateral ground-glass opacities in both lungs which are more consolidated in the lower lobes. I will treat the patient for a hospital-acquired pneumonia with vancomycin, Zosyn and Levaquin. 01/21 Currently improved with treatment overnight and no wheezes. Sats 95% on 4L NC. This can be weaned. (2) Interstitial lung disease: Code(s): J84.9 - Interstitial pulmonary disease, unspecified Status: Acute Assessment and Plan: Patient has had multiple CT scans at [facility], and he brought these images to compare to our current CT scan of the chest to determine if he has persistent infiltrates and or nodules. Patient has no history of hemoptysis and his oxygen requirements are minimally changed. Rheumatoid factor is (+) at 22.7 IU/mL; YAQUELIN screen with 11 auto antibodies, and ANCA screen and hypersensitivity pneumonitis panel. Agree with aggressive diuresis as tolerated by cardiac and renal systems. If patient has persistent infiltrates he may require a bronchoscopy. Start Lovenox 1 milligram/kilos BID and discontinue his Eliquis In case it is felt that a bronchoscopy is warranted after reviewing CT scans and that the patient will stay in the hospital to have this procedure. He wants to be discharged Sunday to get his eye injection for macular degeneration. (3) ROHITH (obstructive sleep apnea): Code(s): G47.33 - Obstructive sleep apnea (adult) (pediatric) Status: Acute Assessment and Plan: Patient clinic note states that he has obstructive sleep apnea but that he has refused CPAP treatment in the past. Will continue 4 L nasal cannula oxygen at night. I spoke with patient and he does not want to attempt CPA/BIPAP mask as he has claustrophobia. (4) Acute respiratory failure with hypoxia and hypercarbia: Code(s): J96.01 - Acute respiratory failure with hypoxia; J96.02 - Acute respiratory failure with hypercapnia Status: Acute Assessment and Plan: Patient with a blood gas of pH 7.39/74/41 on 3 L nasal cannula. Patient has chronic hypercarbic and hypoxemic respiratory failure. He has been using O2 at home, and we talked about the correct way to use O2, aiming for 90-94% on the lowest flow of O2; he says that Drea Miles APRN has talked with him about using 2 L/min at rest, and I agree. He is using too much at rest, may contribute to oxygen atelectasis, and he may need more flow with exertion. Patient has declined CPAP mask in the past and at this point will treat his hypoxemia with nasal cannula oxygen. If patient is in agreement to wear a noninvasive ventilator at night this may help his overall debility. (5) Macular degeneration: Code(s): H35.30 - Unspecified macular degeneration Status: Acute Assessment and Plan: Patient has macular degeneration with poor eyesight in his right
[2021-01-22 16:40] LABS: Glucose Point of Care 277 (65-105)
[2021-01-22 20:11] LABS: Glucose Point of Care 293 (65-105)
[2021-01-22] MEDS: BUDESONIDE RESPULE NEB 0.5 MG/2 ML AMP INHALATION (20:13)
[2021-01-22] MEDS: TAMSULOSIN HCL 0.4 MG CAPSULE PO (20:51)
[2021-01-22] MEDS: APIXABAN 2.5 MG TABLET PO (20:51)
[2021-01-22] MEDS: INSULIN GLARGINE (*BKC) 100 UNITS/ML 15 UNITS SUB-Q (20:59)
[2021-01-23] VITALS (16 sets, daily range): BP systolic 152–153; BP diastolic 69–71; PULSE 70–88; RESP 18–20; TEMP 36–36.1; O2SAT 90–98
[2021-01-23] MEDS: ALBUTEROL SULFATE NEB 2.5 MG/0.5 ML INH INHALATION ×3 (01:52→13:41)
[2021-01-23] MEDS: IPRATROPIUM BR 0.02% INH SOLN 0.5 MG/2.5 ML VIAL INHALATION ×3 (01:52→13:42)
--- NOTE | 2021-01-23 03:38 | PC.NURSE ---
Daylight Savings Time For Daylight Savings Time Ending in the Fall - Clocks are moved back. For Daylight Savings Time Beginning in the Spring - Clocks are moved ahead. For [facility], the time of change occurs at 0200 hrs. Time is taken from the gravity meter observer. This entry on the patient's chart recognizes the change in time reflected during documentation. Example: 2 entries for vital signs may be charted for 0200 hrs.
--- NOTE | 2021-01-23 05:00 | ECG_ITS ---
Measurements Intervals [place] Rate: 82 P: -57 CO: 214 QRS: -3 QRSD: 110 T: -40 QT: 369 QTc: 431 Interpretive Statements ELECTRONIC ATRIAL PACEMAKER FUSION COMPLEX AND VENTRICULAR PREMATURE COMPLEX CONSIDER INFERIOR INFARCT, AGE INDETERMINATE BORDERLINE ST-T WAVE ABNORMALITY- ANTEROLAT/HIGH LAT LEADS ABNORMAL ECG Electronically Signed On 01-23-2021 8:29:27 CDT by Justice Barragan D.O.
[2021-01-23] MEDS: glipiZIDE 5 MG TABLET PO (06:39)
[2021-01-23 06:54] LABS: Blood Urea Nitrogen 32 mg/dL (9-20); Calcium 9.2 mg/dL (8.4-10.2); Carbon Dioxide > 40 mmol/L (22-30); Chloride 97 mmol/L (98-107); Estimated CRCL calculation 46 ml/min; Estimated Glomerular Filt Rate 49; Glucose 225 mg/dL (75-110); Hemoglobin 9.4 g/dL (14.0-18.0); Immature Granulocyte Absolute 0.09 K/mm3 (0.00-0.031); Immature Granulocyte Percent A 0.7 % (0-0.5); Lymphocytes Absolute Auto 0.43 K/mm3 (0.9-3.2); Lymphocytes Percent Auto 3.4 % (18.3-44.2); Magnesium 2.4 mg/dL (1.6-2.3); Mean Corpuscular HGB Conc 30.3 g/dl (32-36); Mean Corpuscular Hemoglobin 27.2 pg (26-34); Mean Corpuscular Volume 89.9 fl (80-100); Mean Platelet Volume 9.5 fl (7.4-10.4); Monocytes Absolute Auto 0.8 K/mm3 (0.1-0.6); Monocytes Percent Auto 6.1 % (2.6-8.5); Neutrophils Absolute Auto 11.2 K/mm3 (1.3-6.7); Neutrophils Percent Auto 89.8 % (45.5-73.1); Platelet Count Result 158 k/mm3 (150-375); Potassium 3.6 mmol/L (3.4-5.0); Red Blood Count 3.45 M/mm3 (4.6-6.20); Red Cell Distribution Width 16.9 % (11.5-14.5); Sodium 143 mmol/L (137-145); White Blood Count 12.5 K/mm3 (4.5-10.0)
[2021-01-23 06:59] LABS: Anisocytosis 1+ (NORMAL); Hypochromasia 1+ (NORMAL); Macrocytosis 1+ (NORMAL); Microcytosis 1+ (NORMAL); Platelet Estimate Adequate (Adequate)
[2021-01-23 07:13] LABS: Glucose Point of Care 262 (65-105)
[2021-01-23] MEDS: BUDESONIDE RESPULE NEB 0.5 MG/2 ML AMP INHALATION (07:52)
--- NOTE | 2021-01-23 08:39 | PM.DS ---
DS: Admitting Diagnosis Admitting Diagnosis Admitting Diagnosis: acute respiratory failure with hypoxemia, acute exacerbation of CHF (systolic/diastolic), COPD, elevated troponin DS: Discharge Diagnosis Discharge Diagnosis (1) Acute respiratory failure with hypoxemia: Code(s): J96.01 - Acute respiratory failure with hypoxia Status: Acute Assessment and Plan: Appears to be secondary to acute CHF (systolic with EF 35-40% and diastolic) exacerbation vs COPD exacerbation based on exam and labs/diagnostics. CXR and elevated BNP suggestive of CHF; exam mores suggestive of possible COPD exacerbation and/or pneumonia. Discussed case with Dr. Kearney (Pulmonology); appreciate recommendations. O2 has been weaned to 3L O2 which he normally wears 3L at rest and 4L with activity. CTA during stay negative for PE; diffuse groundglass opacities of the lungs, consistent with a linear edema and/or pneumonia, cardiomegaly and small pleural effusions noted. Clinically he has improved today. Chest achiness better today, but similar to what he experiences at home on occasion; near his baseline Continue supplemental oxygen at home settings Continue Pulmonology rec with IV zosyn, vanc, and levaquin through discharge. Will d/c on PO antibiotics, likely through 01/27 to complete 7 days total of therapy Sputum culture prelim growing gram negative bacilli Blood cultures NGTD x 2 COVID and Flu swabs negative Continue treatment for CHF exacerbation and COPD exacerbation; see below Plan for discharge today with plans for prompt f/u with Pulmonology, Cardiology, and PCP after discharge. We discussed this in length and patient understands to promptly f/u with above providers after discharge and to return to ED with any worsening/severe symptoms; patient verbalizes he understands instructions. Answered any questions to his satisfaction (2) Acute exacerbation of CHF (congestive heart failure): Qualifiers: Heart failure type: unspecified Qualified Code(s): I50.9 - Heart failure, unspecified Code(s): I50.9 - Heart failure, unspecified Status: Acute Assessment and Plan: CXR and BNP suggestive of acute exacerbation of CHF. Echo shows EF 35-40% with diastolic dysfunction as well; severe pulmonary hypertension noted. 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 Having said this, patient believes his head pastry chef is already aware of his decreased EF as he recently had an Echo last month and has seen his Director Software Development since that was performed. Clinically he has improved significantly since admission and is near his baseline. As above, he understands the importance of following up promptly with Dr. Phillip at [facility]. Of note, records obtained showed Cardiac Cath on 03/13/18 shows segmental left ventricular wall motion abnormality consistent with ischemic injury and EF of 40%; two vessel CAD noted. Attempted to obtain records from PCP, [facility], or [place] for more recent Echo or cardiac cath; difficult as it is the weekend Discussed in length with Cardiology team hear and given that there is a strongly likelihood his established Director Software Development is already aware and given his clinical improvement, it was advised he promptly follow up with Dr. Phillip. Please see above IV lasix 40 mg daily today; transition to home diuretics tomorrow Daily weights after discharge Sodium prudent diet. CHF education. F/u with Director Software Development (3) COPD (chronic obstructive pulmonary disease): Qualifiers: COPD type: unspecified COPD Qualified Code(s): J44.9 - Chronic obstructive pulmonary disease, unspecified Code(s): J44.9 - Chronic obstructive pulmonary disease, unspecified Status: Chronic Assessment and Plan:
[2021-01-23] MEDS: ASPIRIN 81 MG CHEWABLE TABLET PO (08:40)
[2021-01-23] MEDS: CLOPIDOGREL BISULFATE 75 MG TABLET PO (08:40)
[2021-01-23] MEDS: carvediloL 25 MG TABLET PO (08:42)
[2021-01-23] MEDS: INSULIN ASPART (*BKC) 100 UNITS/ML SUB-Q ×2 (08:42→11:45)
[2021-01-23] MEDS: OPTI-GEN TAB 1 TABLET PO (08:42)
[2021-01-23] MEDS: GABAPENTIN 300 MG CAPSULE PO ×2 (08:43→13:52)
[2021-01-23] MEDS: ALPRAZolam (*CRX) 0.25 MG TABLET PO (08:43)
[2021-01-23] MEDS: FUROSEMIDE INJ 40 MG/4 ML VIAL IV PUSH (08:44)
[2021-01-23] MEDS: predniSONE 20 MG TABLET 60 MG PO (08:44)
[2021-01-23] MEDS: DIGOXIN TAB 125 MCG TABLET PO (08:45)
[2021-01-23] MEDS: APIXABAN 2.5 MG TABLET PO (08:45)
[2021-01-23] MEDS: ENALAPRIL MALEATE 10 MG TABLET PO (08:46)
[2021-01-23] MEDS: ACIDOPHILUS/BULGARICUS CHEWABLE TABLET 1 TABLET PO (08:46)
[2021-01-23] MEDS: cycloSPORINE 0.4 ML OPHTH SOLUTION 1 DROP EACH EYE (08:46)
[2021-01-23] MEDS: PANTOPRAZOLE 40 MG TABLET PO (08:46)
[2021-01-23] MEDS: POTASSIUM CHLORIDE 20 MEQ PACKET (FOR LIQUID) 40 MEQ PO (08:47)
[2021-01-23] MEDS: FINASTERIDE 5 MG TABLET PO (08:47)
[2021-01-23] MEDS: HYDROcodone/acetaminophen (*CRX) 7.5-325 MG TABLET 1 TAB PO (08:56)
[2021-01-23 09:52] LABS: Hemoglobin A1C 5.4 % (<5.7)
[2021-01-23 11:45] LABS: Glucose Point of Care 217 (65-105)
--- NOTE | 2021-01-23 12:52 | PM.PNPUL ---
Progress Note: A&P Assessment and Plan (1) COPD (chronic obstructive pulmonary disease): Qualifiers: COPD type: unspecified COPD Qualified Code(s): J44.9 - Chronic obstructive pulmonary disease, unspecified Code(s): J44.9 - Chronic obstructive pulmonary disease, unspecified Status: Chronic Assessment and Plan: Patient with COPD, FEV1 of 49% predicted, TLC 126% predicted, DLCO corrected was 80% on 3 L oxygen at rest and 4 with ambulation and 4 L at night. Patient now with worsening oxygenation, minimal shortness of breath and minimal change in his phlegm production. I will initiate treatment for a COPD exacerbation including Solu-Medrol 40 mg IV q.6 hours, albuterol 2.5 mg nebs q.6, ipratropium 0.5 mg neb Q 6, budesonide 0.5 mg neb Q 12 hours. Patient also with patchy bilateral ground-glass opacities in both lungs which are more consolidated in the lower lobes. I will treat the patient for a hospital-acquired pneumonia with vancomycin, Zosyn and Levaquin. 01/21 Currently improved with treatment overnight and no wheezes. Sats 95% on 4L NC. This can be weaned. (2) Interstitial lung disease: Code(s): J84.9 - Interstitial pulmonary disease, unspecified Status: Acute Assessment and Plan: Patient has had multiple CT scans at [facility], and he brought these images to compare to our current CT scan of the chest to determine if he has persistent infiltrates and or nodules. Patient has no history of hemoptysis and his oxygen requirements are minimally changed. Rheumatoid factor is (+) at 22.7 IU/mL; YAQUELIN screen with 11 auto antibodies, and ANCA screen and hypersensitivity pneumonitis panel. Agree with aggressive diuresis as tolerated by cardiac and renal systems. If patient has persistent infiltrates he may require a bronchoscopy. Start Lovenox 1 milligram/kilos BID and discontinue his Eliquis In case it is felt that a bronchoscopy is warranted after reviewing CT scans and that the patient will stay in the hospital to have this procedure. He wants to be discharged Sunday to get his eye injection for macular degeneration. (3) ROHITH (obstructive sleep apnea): Code(s): G47.33 - Obstructive sleep apnea (adult) (pediatric) Status: Acute Assessment and Plan: Patient clinic note states that he has obstructive sleep apnea but that he has refused CPAP treatment in the past. Will continue 4 L nasal cannula oxygen at night. I spoke with patient and he does not want to attempt CPA/BIPAP mask as he has claustrophobia. (4) Acute respiratory failure with hypoxia and hypercarbia: Code(s): J96.01 - Acute respiratory failure with hypoxia; J96.02 - Acute respiratory failure with hypercapnia Status: Acute Assessment and Plan: Patient with a blood gas of pH 7.39/74/41 on 3 L nasal cannula. Patient has chronic hypercarbic and hypoxemic respiratory failure. He has been using O2 at home, and we talked about the correct way to use O2, aiming for 90-94% on the lowest flow of O2; he says that Drea Miles APRN has talked with him about using 2 L/min at rest, and I agree. He is using too much at rest, may contribute to oxygen atelectasis, and he may need more flow with exertion. Patient has declined CPAP mask in the past and at this point will treat his hypoxemia with nasal cannula oxygen. If patient is in agreement to wear a noninvasive ventilator at night this may help his overall debility. (5) Macular degeneration: Code(s): H35.30 - Unspecified macular degeneration Status: Acute Assessment and Plan: Patient has macular degeneration with poor eyesight in his right eye, scheduled to get an injection in the
[2021-01-25 12:08] LABS: ANA Cascade Screen Negative (Negative)
[2021-01-25 14:40] LABS: Blastomyces Antibody Negative (Negative)
[2021-01-26 09:53] LABS: Anti Cyclic Citrullinated Pept <16 Units (<20)
--- NOTE | 2021-01-27 13:31 | PC.NURSE ---
Blood cx are negative.
[2021-01-27 21:33] LABS: ANCA Screen Negative (Negative)
== END 2021-01-23 14:30 | disposition home or self-care (01) | DRG 291 ==
LOC: ANHED 01-21 03:07 → ANHIMU 01-21 03:34
PROVIDERS: Internal Medicine Pulmonary Disease; Physician Assistant; Admitting Provider Family Medicine; Emergency Provider Emergency Medicine; PCP Nurse Practitioner; Visit Provider Internal Medicine
DX: I11.0 Hypertensive heart disease with heart failure (principal); J96.22 Acute and chronic respiratory failure with hypercapnia; J96.21 Acute and chronic respiratory failure with hypoxia; J18.9 Pneumonia, unspecified organism; J44.1 Chronic obstructive pulmonary disease with (acute) exacerbation; J44.0 Chronic obstructive pulmonary disease with (acute) lower respiratory infection; I48.20 Chronic atrial fibrillation, unspecified; J84.9 Interstitial pulmonary disease, unspecified; Z20.822 Contact with and (suspected) exposure to COVID-19; I50.41 Acute combined systolic (congestive) and diastolic (congestive) heart failure; G47.33 Obstructive sleep apnea (adult) (pediatric); H35.30 Unspecified macular degeneration; D69.6 Thrombocytopenia, unspecified; E87.6 Hypokalemia; E11.9 Type 2 diabetes mellitus without complications; I25.10 Atherosclerotic heart disease of native coronary artery without angina pectoris; N40.0 Benign prostatic hyperplasia without lower urinary tract symptoms; F41.9 Anxiety disorder, unspecified; Z99.81 Dependence on supplemental oxygen; Z87.891 Personal history of nicotine dependence; Z79.01 Long term (current) use of anticoagulants; Z95.1 Presence of aortocoronary bypass graft
CPT/HCPCS: 36415; 36600; 71045; 71275; 80048; 80053; 80162; 82805; 82948; 83036; 83735; 83880; 84439; 84443; 84480; 84484; 85025; 85380; 85610; 85730; 86021; 86038; 86200; 86331; 86430; 86606; 86609; 86612; 87040; 87070; 87077; 87186; 87205; 87385; 87804; 93005; 93306; 94640; 96365; 96366; 96367; 96368; 96372; 96374; 96375; 96376; 99285; A9270; C9803; G0378; J1650; J1815; J1940; J1956; J2543; J2920; J2930; J3370; J7512; Q9967; U0003; U0005